=== PATIENT | male | born 1990 | race Two or more races ===

== ENCOUNTER 2024-05-08 15:57 | Emergency (ER) | payer OTHER ==
[~2024-05-08] VITALS: Ht 177.8 cm; Wt 73.0 kg
[2024-05-08] MEDS ORDERED: IBUP-2314 PO (18:37)
[2024-05-08 18:42] VITALS: BP 128/67; TEMP 98.8; O2SAT 100
== END 2024-05-08 18:42 | disposition home or self-care (01) ==
LOC: ER 15:59
DX: S16.1XXA Strain of muscle, fascia and tendon at neck level, initial encounter (principal); S09.8XXA Other specified injuries of head, initial encounter; M25.512 Pain in left shoulder; I49.9 Cardiac arrhythmia, unspecified; Z60.2 Problems related to living alone; V43.52XA Car driver injured in collision with other type car in traffic accident, initial encounter; Y93.89 Activity, other specified; Y92.488 Other paved roadways as the place of occurrence of the external cause; Y99.8 Other external cause status
CPT/HCPCS: 70450-TC; 71045-TC; 72125-TC; 73030-TC